=== PATIENT | male | born 1995 | race African-American/Black ===

== ENCOUNTER 2022-05-23 07:44 | Outpatient (CLI) | payer OTHER ==
[~2022-05-23 07:44] MED LIST: IBUPROFEN800 MG PO; NORFLEX100MG PO
== END 2022-05-23 07:46 | disposition home or self-care (01) ==
LOC: LAB 07:44
PROVIDERS: ATTEND Obstetrics & Gynecology
DX: Z20.828 Contact with and (suspected) exposure to other viral communicable diseases (principal); Z20.818 Contact with and (suspected) exposure to other bacterial communicable diseases